=== PATIENT | female | born 2000 | race Caucasian/White ===

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

== ENCOUNTER → 2021-07-26 13:37 | Outpatient (CLI) | payer OTHER, SELFPAY ==
[2021-07-26 15:26] LABS: T4 (Thyroxine) 7.8 ug/dl (5.53-11.0)
[2021-07-26 15:40] LABS: Thyroid Stimulating Hormone 3.81 uIU/mL (0.465-4.68)
[2021-07-26 21:43] LABS: Free Thyroxine Index 2.3 ug/dL (5.93-13.13); Triiodothryronine (T3) Uptake 30 % (23.5-40.5)
== END ==
PROVIDERS: Visit Provider Nurse Practitioner Obstetrics & Gynecology
DX: E03.9 Hypothyroidism, unspecified (principal)
CPT/HCPCS: 36415; 84436; 84443; 84479

== ENCOUNTER → 2021-12-13 12:38 | Outpatient (CLI) | payer OTHER, SELFPAY ==
[2021-12-13 14:00] LABS: Basophils % 0.6 % (0.1-2.0); Eosinophils # 0.1 K/mm3 (0.0-0.4); Eosinophils % 1.9 % (0.1-12.0); Hematocrit 39.2 % (37.0-47.0); Hemoglobin 12.7 g/dL (12.2-16.2); Lymphocytes % 25.7 % (10-50); Mean Corpuscular HGB Conc 32.4 g/dL (31.8-35.4); Mean Corpuscular Volume 89.4 fl (81-99); Mean Platelet Volume 9.2 fl (7.4-10.4); Monocytes # 0.5 K/mm3 (0.1-1.0); Monocytes % 6.6 % (1.7-9.3); Neutrophils % 65.2 % (37.0-80.0); Platelet Count 345 K/mm3 (142-424); Red Blood Count 4.38 M/mm3 (4.20-5.40); Red Cell Distribution Width 13.2 % (11.5-17.5); White Blood Count 7.6 K/mm3 (4.8-10.8)
[2021-12-13 14:20] LABS: Chloride 103 mmol/L (98-107)
[2021-12-13 14:21] LABS: Potassium 4.4 mmoL/L (3.5-5.1); Sodium 139 mmol/L (136-145)
[2021-12-13 14:23] LABS: Alanine Aminotransferase 10 U/L (12-78); Alkaline Phosphatase 72 U/L (38-126); Aspartate Amino Transferase 28 U/L (14-36); Bilirubin,Total 0.3 mg/dl (0.2-1.3); Blood Urea Nitrogen 18 mg/dl (7-17); Estimated Glomerular Filt Rate 106 ml/min (>60); GFR (African American) 128 ML/MIN (>60)
[2021-12-13 14:24] LABS: Albumin Level 4.5 g/dl (3.5-5.0); Albumin/Globulin Ratio 1.6 (1.1-1.8); Anion Gap 11.4 mEq/L (5-15); Calcium 9.5 mg/dl (8.4-10.2); Carbon Dioxide 29 mmol/L (22.0-30.0); Globulin 2.9 g/dL (1.3-3.2); Glucose 102 mg/dl (74-100); Total Protein,Serum 7.4 g/dl (6.3-8.2)
[2021-12-13 16:26] LABS: Free Thyroxine Index 2.5 ug/dL (5.93-13.13); T4 (Thyroxine) 8.2 ug/dl (5.53-11.0); Triiodothryronine (T3) Uptake 31 % (23.5-40.5)
[2021-12-15 06:31] LABS: HIV Screen 4th Generation wRfx Non Reactive (Non Reactive); Hep A Ab, IgM Negative (Negative); Hepatitis B Core Antibody IgM Negative (Negative); Hepatitis B Surface Antigen Negative (Negative); Hepatitis C Antibody <0.1 s/co ratio (0.0-0.9)
[2021-12-15 08:23] LABS: HSV 2 IgG, Type Spec <0.91 index (0.00-0.90)
[2021-12-15 11:28] LABS: Rapid Plasma Reagin Ab Titer Non Reactive (NonRea<1:1)
== END ==
PROVIDERS: PCP Pediatrics; Visit Provider Nurse Practitioner Obstetrics & Gynecology
DX: Z01.419 Encounter for gynecological examination (general) (routine) without abnormal findings (principal); Z72.51 High risk heterosexual behavior; N92.6 Irregular menstruation, unspecified; R53.82 Chronic fatigue, unspecified; R68.89 Other general symptoms and signs
CPT/HCPCS: 36415; 80053; 80074; 84436; 84443; 84479; 85025; 86592; 86695; 86703; 86790; G0432

== ENCOUNTER → 2021-12-16 09:56 | Outpatient (CLI) | payer OTHER, SELFPAY ==
--- NOTE | 2021-12-16 09:56 | US_ITS ---
FINAL REPORT CLINICAL HISTORY: Irregular menses, bleeding FINDINGS: Transvaginal sonographic images of the pelvis were obtained. The uterus measures 4.9 x 2.7 x 3.9 cm. The endometrium measures 7 mm, which is within normal limits. No uterine mass is identified. The right ovary measures 3.2 cm in length and left ovary measures 3.1 cm in length. Normal blood flow seen to the ovaries. Small follicles are seen in both ovaries. There is no evidence of free fluid. IMPRESSION: No acute abnormality identified. Reviewed, Interpreted and Dictated by Sotero Mcadams MD Transcribed by Jacklyn Vaz Authenticated by Sotero Mcadams MD on 12/16/2021 02:51:08 PM [facility]
== END ==
PROVIDERS: PCP Pediatrics; Visit Provider Nurse Practitioner Obstetrics & Gynecology
DX: N92.6 Irregular menstruation, unspecified (principal)
CPT/HCPCS: 76830

== ENCOUNTER → 2022-08-11 14:10 | Outpatient (CLI) | payer SELFPAY ==
[2022-08-11 15:45] LABS: Thyroid Stimulating Hormone 4.71 uIU/mL (0.465-4.68)
== END ==
PROVIDERS: PCP Pediatrics; Visit Provider Nurse Practitioner Obstetrics & Gynecology
DX: E03.9 Hypothyroidism, unspecified (principal)
CPT/HCPCS: 84443

== ENCOUNTER 2024-05-21 16:57 | Outpatient (CLI) | payer BC, OTHER, SELFPAY ==
[2024-05-24 15:09] LABS: Neisseria gonorrhoeae, NAA Negative (Negative)
== END 2024-05-21 23:59 | disposition home or self-care (01) ==
LOC: LAB.DROPOF 16:58
PROVIDERS: PCP Nurse Practitioner Obstetrics & Gynecology; Visit Provider Nurse Practitioner Obstetrics & Gynecology
DX: Z34.90 Encounter for supervision of normal pregnancy, unspecified, unspecified trimester (principal)
CPT/HCPCS: 87086; 87491; 87591

== ENCOUNTER 2024-05-28 12:32 | Outpatient (CLI) | payer BC, OTHER, SELFPAY ==
--- NOTE | 2024-05-28 12:33 | US_ITS ---
PROCEDURE: US OB <= 14 WEEKS FETUS CLINICAL INDICATION: Dates/Confirmation of COMPARISON: No exams were available for comparison FINDINGS: Transvaginal sonographic images of the pelvis were obtained. From her last menstrual period she is 6weeks 1day. An intrauterine gestational sac is present with a pole with a crown-rump length of 0.51cm This correlates to a gestational age of 6weeks 2days. heart tones are present with an FHR of 120bpm. Yolk sac is noted. The yolk sac measures 5.8mm. A small subchorionic hemorrhage is seen. The right ovary is seen and appears normal. The left ovary is seen and appears normal. There is a follicle measuring 2.3 cm x 2.9 cm x 2.4 cm. There is no fluid in the cul-de-sac. IMPRESSION: 1. Viable fetus within the uterine cavity. 2. Fetus measures 6 weeks and 2 days. Her due date will be January 19, 2025. 3. Both ovaries are seen and appear normal. 4. No fluid in the cul-de-sac. Dictated by: Kermit Gilbert MD 05/28/2024 16:58 Kermit Gilbert MD in OV 05/28/2024 16:58
[2024-05-28 14:11] LABS: Basophils # 0.1 K/mm3 (0-0.2); Basophils % 0.6 % (0.1-2.0); Eosinophils # 0.1 K/mm3 (0.0-0.4); Eosinophils % 1.4 % (0.1-12.0); Hematocrit 34.7 % (37.0-47.0); Hemoglobin 11.3 g/dL (12.2-16.2); Lymphocytes # 1.8 K/mm3 (0.7-4.5); Lymphocytes % 21.4 % (10-50); Mean Corpuscular HGB Conc 32.6 g/dL (31.8-35.4); Mean Corpuscular Hemoglobin 28.8 pg (27.0-31.2); Mean Corpuscular Volume 88.4 fl (81-99); Monocytes # 0.5 K/mm3 (0.1-1.0); Monocytes % 6.2 % (1.7-9.3); Neutrophils # 5.9 K/mm3 (1.8-7.8); Neutrophils % 70.5 % (37.0-80.0); Platelet Count 291 K/mm3 (142-424); Red Blood Count 3.92 M/mm3 (4.20-5.40); Red Cell Distribution Width 14.2 % (11.5-17.5); White Blood Count 8.3 K/mm3 (4.8-10.8)
[2024-05-29 12:39] LABS: HIV (1&2) Antibody Rapid NON REACTIVE
[2024-05-30 06:08] LABS: HCV Ab Non Reactive (Non Reactive); Hepatitis B Surface Antigen Negative (Negative); Rubella Antibodies, IgG 1.24 index (Immune >0.99)
[2024-05-30 13:18] LABS: Rapid Plasma Reagin Ab Titer Non Reactive titer (NonRea<1:1)
== END 2024-05-28 23:59 | disposition home or self-care (01) ==
LOC: RAD 12:33
PROVIDERS: PCP Pediatrics; Visit Provider Nurse Practitioner Obstetrics & Gynecology
DX: Z36.87 Encounter for antenatal screening for uncertain dates (principal); O99.211 Obesity complicating pregnancy, first trimester; Z3A.09 9 weeks gestation of pregnancy; E66.9 Obesity, unspecified
CPT/HCPCS: 36415; 76801; 85025; 86593; 86762; 86850; 87340

== ENCOUNTER 2024-07-14 11:36 | Outpatient (CLI) | payer BC, OTHER, SELFPAY ==
[2024-07-14 12:41] LABS: Triiodothryronine (T3) Uptake 25 % (23.5-40.5)
[2024-07-14 12:42] LABS: T4 (Thyroxine) 15.8 ug/dl (5.53-11.0)
[2024-07-14 12:55] LABS: Thyroid Stimulating Hormone 1.74 uIU/mL (0.465-4.68)
== END 2024-07-14 23:59 | disposition home or self-care (01) ==
LOC: LAB 11:37
PROVIDERS: PCP Pediatrics; Visit Provider Nurse Practitioner Obstetrics & Gynecology
DX: E03.9 Hypothyroidism, unspecified (principal)
CPT/HCPCS: 36415; 84436; 84443; 84479